=== PATIENT | male | born 1950 | race Caucasian/White ===

== ENCOUNTER 2020-09-25 15:31 | Outpatient (REF) | payer BC, SELFPAY ==
[2020-09-30 04:03] LABS: Acetylcholine Receptor Binding <0.30 nmol/L
[2020-09-30 19:47] LABS: Acetylcholine Recep Modulating 21
[2020-09-30 20:57] LABS: Acetylcholine Recept. Blocking <15 (<15)
== END 2020-09-25 15:32 | disposition home or self-care (01) ==
LOC: HO.LAB 15:31
PROVIDERS: PCP Internal Medicine; Visit Provider Psychiatry & Neurology Neurology
DX: G70.00 Myasthenia gravis without (acute) exacerbation (principal)
CPT/HCPCS: 36415; 83519